=== PATIENT | female | born 1945 | race Caucasian/White ===

== ENCOUNTER 2016-06-22 07:44 | Day surgery (SDC) | payer MEDICARE, OTHER ==
[~2016-06-22] VITALS: Ht 175.3 cm; Wt 99.8 kg
[~2016-06-22 07:44] MED LIST: 0.9% Sodium Chloride 1,000 ML IV SCH; ALEN35TA31 PO; Sodium Chloride LOK Flush 10 mL Syringe IV PRN; VARI1940 SQ; fentaNYL-PF 50 mCg/mL 2 mL Inj IVPUSH PRN
[2016-06-22 08:01] VITALS: BP 126/72; PULSE 60; RESP 14; O2SAT 98
[2016-06-22] MEDS ORDERED: CHOL200025 PO (08:05)
[2016-06-22] MEDS ORDERED: CALC200T2 PO (08:05)
[2016-06-22 09:14] VITALS: BP 115/60; PULSE 57; RESP 14; O2SAT 98
--- NOTE | 2016-06-22 16:22 | ENDO ---
[address] [address] ENDOSCOPY PROCEDURE PATIENT: DILLON CAMPOS : 1945 MR#: [id number] ADMIT: 06/22/2016 JOB ID: [id number] DATE: 06/22/2016 PREOPERATIVE DIAGNOSIS(ES): Family history of colon cancer. POSTOPERATIVE DIAGNOSIS(ES): Normal colonoscopy to cecum. OPERATION: Colonoscopy to cecum. SURGEON: Enzo hCase MD. INDICATIONS: A 70-year-old female whose mother had colon cancer in her 80s and she is here for screening colonoscopy. FINDINGS: She had a good prep. The scope was advanced into the terminal ileum. Looks totally normal. The colon and rectum were also normal. There were no polyps, inflammation, vascular lesions or diverticula. Retroflexed views of the rectum were normal. DESCRIPTION OF PROCEDURE: The procedure and sedation plan was discussed with the patient and nursing staff. A procedural time-out was held. She received 3 mg of Versed and 100 mcg of fentanyl. A digital rectal examination was performed and the Olympus PCF H 180 AL video colonoscope was passed transanally, advanced into the cecum and then into the terminal ileum and withdrawn with the results stated above. Suction irrigation used as necessary. Retroflexed views of the rectum were obtained. IMPRESSION: 1. Normal colonoscopy to cecum. 2. Family history of colon cancer. RECOMMENDATIONS: Repeat colonoscopy five years.
== END 2016-06-22 23:59 | disposition home or self-care (01) ==
LOC: END 07:44
PROVIDERS: ATTEND Surgery
DX: Z12.11 Encounter for screening for malignant neoplasm of colon (principal); Z86.010 Personal history of colon polyps; Z80.0 Family history of malignant neoplasm of digestive organs; Z85.828 Personal history of other malignant neoplasm of skin; E78.5 Hyperlipidemia, unspecified
CPT/HCPCS: 99153; G0105; G0500; J7030